=== PATIENT | male | born 1985 | race Caucasian/White ===

== ENCOUNTER → 2021-01-09 | Outpatient (CLI) | payer BC ==
[~2021-01-09] MED LIST: IMITREX50 MG PO; LEVEMIR100 UNIT/1 SC; NOVOLOG100 UNIT/1 SC
== END ==
LOC: US 13:30
DX: N62 Hypertrophy of breast (principal); E13.69 Other specified diabetes mellitus with other specified complication; R53.82 Chronic fatigue, unspecified; R61 Generalized hyperhidrosis
CPT/HCPCS: 76641-LT; 76641-RT

== ENCOUNTER 2021-06-17 11:15 | Emergency (ER) | payer BC ==
[2021-06-17 13:39] LABS: RED BLOOD COUNT 4.52 M/UL (4.20-5.50); WHITE BLOOD COUNT 7.3 K/UL (4.5-11.0)
[2021-06-17 14:20] LABS: BUN/CREATININE RATIO 18 (0-10)
[2021-06-17] MEDS ORDERED: ZOFRAN4 MG PO (17:44)
== END 2021-06-17 20:00 | disposition home or self-care (01) ==
LOC: ER1 11:15
PROVIDERS: Physician Assistant
DX: E11.9 Type 2 diabetes mellitus without complications (principal); R19.7 Diarrhea, unspecified; F17.200 Nicotine dependence, unspecified, uncomplicated; Z88.1 Allergy status to other antibiotic agents; Z20.822 Contact with and (suspected) exposure to COVID-19
CPT/HCPCS: 71045; 80053; 81001; 82009; 82803; 85025; 96374; 99285; J2405; U0002

== ENCOUNTER → 2021-08-06 | Outpatient (CLI) | payer OTHER, BC ==
[~2021-08-06] MED LIST changes: +ZOFRAN4 MG PO
== END ==
LOC: EMI 10:00
DX: S16.1XXA Strain of muscle, fascia and tendon at neck level, initial encounter (principal); S09.90XA Unspecified injury of head, initial encounter; S29.011A Strain of muscle and tendon of front wall of thorax, initial encounter; V89.2XXA Person injured in unspecified motor-vehicle accident, traffic, initial encounter
CPT/HCPCS: 72141

== ENCOUNTER → 2021-09-04 | Outpatient (CLI) | payer OTHER | LOC: KOH-I 09:00 | DX: M25.512 Pain in left shoulder (principal); M25.612 Stiffness of left shoulder, not elsewhere classified; M25.312 Other instability, left shoulder; S32.018A Other fracture of first lumbar vertebra, initial encounter for closed fracture; V89.2XXA Person injured in unspecified motor-vehicle accident, traffic, initial encounter | CPT/HCPCS: 73221 ==